=== PATIENT | female | born 1975 | race Two or more races ===

== ENCOUNTER → 2019-10-04 | Outpatient (CLI) | payer MEDICAID ==
--- NOTE | 2019-10-04 16:02 | RAD ---
Examination: TIBIA FIBULA LEFT History: Left lateral leg cyst Comparison/Correlation: None Findings: Frontal and lateral views of the left tibia and fibula were obtained. Joint spaces are normal. No acute fracture or bone destruction. Indeterminate bony densities at the proximal midfoot level which may represent accessory ossicles are present without suspicious features. No lytic bony destructive process identified. Soft tissues are unremarkable. Impression: No acute process. Electronically signed by: Anthony Foley MD (10/04/2019 3:58 PM) [id number]
== END | disposition home or self-care (01) ==
LOC: PMG 11:01
PROVIDERS: ATTEND Family Medicine
DX: L72.0 Epidermal cyst (principal)
CPT/HCPCS: 73590

== ENCOUNTER → 2019-10-17 | Outpatient (CLI) | payer MEDICAID ==
--- NOTE | 2019-10-17 15:30 | RAD ---
Lumbar spine 3 views. HISTORY: Back pain 3 views were taken of the lumbar spine. There is increased stool in the colon. There is no bowel obstruction. Lumbar spine is in normal alignment. Disc spaces are normal in height. There are 4 lumbar type vertebra. IMPRESSION: 1. Increased stool in the colon. 2. Negative lumbar spine. Electronically signed by: Royal Lindsey MD (10/17/2019 3:27 PM) [id number]
== END | disposition home or self-care (01) ==
LOC: LAB 14:57
PROVIDERS: ATTEND Nurse Practitioner Women's Health
DX: Z11.3 Encounter for screening for infections with a predominantly sexual mode of transmission (principal); M54.9 Dorsalgia, unspecified; K56.41 Fecal impaction
CPT/HCPCS: 72100; 86592; 86703; 86803

== ENCOUNTER → 2019-12-08 | Day surgery (SDC) | payer MEDICAID ==
[~2019-12-08] MED LIST: BUPIVACAINE-EPI 0.25%-1:200000 MPF 30 ML VIAL. ONE; LIDOCAINE 1% Multi-Dose 20 ML VIAL. ONE; LIDOCAINE 1%/EPI 1:100,000 20 ML VIAL. IJ ONE; LIDOCAINE 1%/EPI 1:100,000 20 ML VIAL. ONE; MULT-246 PO
[2019-12-08 08:16] VITALS: BP 128/63
--- NOTE | 2019-12-08 08:20 | PDOC ---
BRIEF OPERATIVE NOTE Date: December 08, 2019 Pre-Op Diagnosis LEFT LOWER EXTRIMITY MASS Post-Op Diagnosis Same Procedure Performed Excision of mass Surgeon Jet Anesthesiologist Local Anesthesia Type: Local Blood Loss 2ml Specimens Obtained yes Findings as above Complications none CLARKE MCDONALD MD December 08, 2019 08:20
--- NOTE | 2019-12-08 08:22 | DISCH ---
DISCHARGE INSTRUCTIONS-DC Condition on Discharge Condition on Discharge: Stable Activity after Discharge Activity Instructions for Disc: No restrictions Diet after Discharge Diet after Discharge: Regular Wound/Incision Care Other wound/incision instructi: alban shower in 24 hours Contacting the after DC Call your doctor for: If your condition worsens Follow-Up Follow up with: Dr Mcdonald in 2 weeks if needed CLARKE MCDONALD MD December 08, 2019 08:22
--- NOTE | 2019-12-08 09:13 | PDOC4 ---
Operative Report DATE 12/08/2019 Preop Diagnosis Left lower extremity mass Post-op Diagnosis Same Operation Performed Excision of left lower extremity mass Patient is a 44-year-old female complaining of a left lower extremity mass on the lateral aspect of her griggs approximately 1 cm in diameter has been very painful over the last several weeks. Procedure of excision was explained to the patient detail was benefits were also discussed including bleeding infection alternatives to this procedure also discussed with patient who seemed to und erstand and gave both verbal and written consent to have the procedure performed. Patient was taken to the minors room placed in the supine position, her left lower extremity was prepped and draped in usual sterile fashion using ChloraPrep and area over the mass was injected with 1% lidocaine with epinephrine was this was anesthetized incision was made with 15 blade scalpel and the mass was sharply excised with a 15 blade scalpel and sent for pathology. The wound was closed in a single layer of 4-0 Monocryl subcuticular stitch Mastisol Steri-Strips and island dressing were applied. Patient tolerated procedure well was discharged home in stable condition all sponge instrument needle counts listed as correct. Surgeon Jet ANESTHESIA PROPOSED: LOCAL Blood Loss 2 mL Specimen Left lower extremity mass Complications None CLARKE MCDONALD MD December 08, 2019 09:13
--- NOTE | 2019-12-13 17:06 | PATHOLOGY ---
[facility] Accession Number: [id number] . 01 Material submitted: . leg - LEFT LOWER EXTREMITY MASS. Modifiers: left, lower . 01 Clinical history: . None provided. . 02 Diagnosis: Fibroadipose tissue, left lower extremity excision: - Leiomyoma. (JPM:shireen; 12/11/2019) S 12/11/2019 1004 Local . 02 Comment: Sections of the left lower extremity mass excision reveal a well circumscribed mass composed of a relatively hypocellular proliferation of spindled shaped tumor cells arranged in interlacing fasicles. The tumor cells have eosinophilic cytoplasm, and possess elongated, cigar shaped bland nuclei. There is no significant nuclear atypia or mitotic activity. There is no evidence of necrosis. A panel of immunoperoxidase stains is obtained on block A1 and yields the following results: . Vimentin: Tumor cells positive S100: Tumor cells negative Smooth muscle actin: Tumor cells positive Smooth muscle myosin heavy chain: Tumor cells positive . The morphologic and immunophenotypic findings are supportive of the diagnosis of leiomyoma. There is no evidence of malignancy. (JPM:shireen; 12/11/2019) . . Special stains performed: Immunoperoxidase stains for vimentin, S100, smooth muscle actin, and smooth muscle myosin heavy chain . 02 Electronically signed: . Riki Colindres MD, Pathologist NPI- [id number] . 01 Gross description: . Received in formalin labeled "Shanell Barahona, left lower extremity mass" is a yellow-wilburn nodular soft tissue mass measuring 0.7 x 0.5 x 0.5 cm. The external surface is inked and the specimen is bisected and submitted in cassette A1. (SK; 12/08/2019) SYC/SYC 12/08/2019 1904 Local . 02 Pathologist provided ICD-10: D21.22 . 02 CPT . 570272, F74806, [id number] Specimen Comment: A courtesy copy of this report has been sent to [phone], [phone] Specimen Comment: [id number] Specimen Comment: Report sent to / DR CULP Performed at: [address] [facility] [address], [place] [id number] MD Hero Ewing MD Phone: [phone] Performed at: 02 [facility] [address], [place] [id number] MD Riki Colindres MD Phone: [phone]
== END | disposition home or self-care (01) ==
LOC: SURG 07:11
PROVIDERS: ATTEND Surgery
DX: M79.89 Other specified soft tissue disorders (principal); D21.22 Benign neoplasm of connective and other soft tissue of left lower limb, including hip; Z11.59 Encounter for screening for other viral diseases; Z88.6 Allergy status to analgesic agent; Z79.899 Other long term (current) drug therapy; Z98.890 Other specified postprocedural states
CPT/HCPCS: 87635; 88305; 88341; 88342

== ENCOUNTER 2021-01-31 10:23 | Emergency (ER) | payer MEDICAID ==
[~2021-01-31] VITALS: Ht 160 cm; Wt 61.3 kg
[~2021-01-31 10:23] MED LIST changes: -BUPIVACAINE-EPI 0.25%-1:200000 MPF 30 ML VIAL. ONE; -LIDOCAINE 1% Multi-Dose 20 ML VIAL. ONE; -LIDOCAINE 1%/EPI 1:100,000 20 ML VIAL. IJ ONE; -LIDOCAINE 1%/EPI 1:100,000 20 ML VIAL. ONE
[2021-01-31 10:43] VITALS: BP 128/79
[2021-01-31] MEDS ORDERED: diazePAM 5 MG TABLET. PO ONE (11:00)
--- NOTE | 2021-01-31 11:11 | PHYS DOC ---
Past History Alcohol Use: None General Adult EDM: Chief Complaint: BACK PAIN OR INJURY HPI: HPI: 45 yo F PMH left sided sciatica, presents to the ed with fiance, (patient consents to his/her/their knowledge and involvement in pts' medical care), c/o back pain that started around 6pm last night, c/o midline low back pain that radiated to both sides after bending over to citrus picker her laundry basket. States she took motrin and naprosyn (> 6 hours apart) and a muscle relaxer prescribed by Dr. Kim for left lower extremity sciatica that was caused by a left lower extremity lesion that started after a mass removal. States pain is now localized in her right lower back and radiating down her right leg. No history of disc herniations. No associated blunt back injury. Reports she exercises 4-5 times a week, denies any new/increased heavy lifting. Reports she does squats while holding weights. Denies any history of trauma, history of IV drug use, history of cancer, history of malignancy, history of immunocompromise state, neurologic complaints including saddle anesthesia, weakness or paresthesias, urinary retention, bowel or bladder incontinence, night pain, fever/chills/night sweats, unexplained weight loss, anticoagulants or coagulopathy, prolonged steroid use, older age, presence of contusions or abrasions. Review of Systems: Review of Systems: Constitutional: Denies fever or chills Eyes: Denies change in visual acuity HENT: Denies nasal congestion or sore throat Respiratory: Denies cough or shortness of breath Cardiovascular: Denies chest pain or edema GI: Denies nausea, vomiting, : Denies dysuria or vaginal bleeding Musculoskeletal: Denies joint pain or swelling Integument: Denies rash or diaphoresis Neurologic: Denies headache or diaphoresis Psychiatric: Denies depression or anxiety Allergies: Allergies: Allergies Coded Allergies Type Severity Reaction Last Updated Verified aspirin Allergy Severe tongue swelling, shortness of air 12/06/19 Yes Physical Exam: PE: Constitutional: Well developed, thin/appears physically active/fit, afebrile HENT: Normocephalic, atraumatic, Eyes: EOMI, conjunctiva normal, no discharge. Neck: Normal range of motion, supple, Cardiovascular: S1/2 present, regular rhythm Lungs & Thorax: Speaking in full sentences, bilateral equal chest rise, no tachypnea or increased work of breathing Abdomen: soft, no tenderness, Skin: Warm, dry, no erythema, no rash. [] Back: no midline step offs or reproducible midline ttp, reports L5/S1 joint pain/right buttock pain with right straight leg test negative, pain exacerbated with hip/torso flexion extension or hip twisting rotations, no CVA tenderness. [] Extremities: No tenderness, no cyanosis, no lower extremity edema Neurologic: Alert and oriented X 3, normal motor function, normal sensory function, no focal deficits noted. [] Psychologic: Affect normal, judgement normal, mood normal. [] EKG: EKG: [] Radiology/Procedures: Radiology/Procedures: IMAGING REPORT Signed PATIENT: LUBA RODRIGUES ACCOUNT: [id number] : 1975 LOCATION: ER AGE: 45 SEX: F EXAM STATUS: REG ER ORD. PHYSICIAN: HARRY CARRILLO DO REASON: L5 back pain after squats PROCEDURE: CT LUMBAR SPINE WO CONTRAST CT LUMBAR SPINE WO History:Reason: L5 back pain after squats / Spl. Instructions: / History: Technique: Noncontrast CT was performed of the lumbar spine. Multiplanar reconstructions were performed. Exposure: One or more of the following individualized dose reduction techniques were utilized for this examination: 1. Automated exposure control 2. Adjustment of the mA and/or kV according to patient size 3. Use of iterative reconstruction technique. Comparison: None Findings: Normal vertebral body height and alignment. No fracture. T12-L1: No canal or neuroforaminal narrowing. L1-L2: Minimal disc bulge. No canal or neuroforaminal narrowing. L2-L3: Minimal disc bulge. No canal or neuroforaminal narrowing. L3-L4: Small disc bulge. No canal or neuroforaminal narrowing. L4-L5: Small disc bulge. Mild facet arthropathy. No canal or neuroforaminal narrowing. L5-S1: Small broad-based disc bulge with left foraminal disc protrusion. Slight abutment of the descending S1 nerve roots, right greater than left. Correlate for radiculopathy. No canal narrowing. Minimal left neuroforaminal narrowing with protrusion marginating the exiting left L5 nerve root. Impression: 1. No acute osseous abnormality. 2. Mild multilevel lumbar spondylosis most prominent L5-S1, as described. Electronically signed by: Hernandez Shane DO (01/31/2021 12:12 PM) [id number] DICTATED AND SIGNED BY: HERNANDEZ SHANE DO DATE: 01/31/21 1206 CC: VALERIA KIM MD; HARRY CARRILLO ~MTH0 0 Heart Score: C/O Chest Pain: No Risk Factors: Risk Factors: DM, Current or recent (<one month) smoker, HTN, HLP, family history of CAD, obesity. Risk Scores: Score 0 - 3: 2.5% MACE over next 6 weeks - Discharge Home Score 4 - 6: 20.3% MACE over next 6 weeks - Admit for Clinical Observation Score 7 - 10: 72.7% MACE over next 6 weeks - Early Invasive Strategies Course & Med Decision Making: Course & Med Decision Making Pertinent Labs and Imaging studies reviewed. (See chart for details) Concern for atraumatic back pain in a 45-year-old female who appears physically active, had performed squats with hand-held weights prior to onset of pain. Denies any blunt injury. Has no neurologic deficits. Pain is currently not midline and is radiating down her right leg. CT imaging consistent with mild disc herniations and radiculopathy. Patient afebrile, well-appearing. On reevaluation, significant pain relief with vomiting. Will prescribe muscle relaxers-patient educated to not mix use whatsoever in addition to alcohol given risk of apnea. Will discharge home with strict ED return precautions were given for saddle anesthesia, urine or bowel retention or incontinence, neurologic deficits including sensorimotor deficits. Encouraged urgent outpatient follow-up with PMD and Ortho/neurosurgery for definitive management. Life-threatening processes were considered but are low suspicion at this time, given history, physical exam and ED workup. Pt was educated on all prescription medications and adverse effects. All patient's questions were answered and pt was stable at time of discharge. Life/limb-threatening differential includes but is not limited to, aortic dissection/aneurysm, cauda equina syndrome, transverse myelitis, spinal cord/epidural compression syndromes, discitis, spinal stenosis, epidural abscess or hematoma, osteomyelitis, disc herniation, surgical abdomen, stable or unstable fracture, renal/ureteral colic, sepsis, meningitis, musculoskeletal injury, traumatic injury, intraabdominal/retroperitoneal or pelvic bleeding. I spoken with the patient and her caregivers. I explained the patient's condition, diagnoses and treatment plan based on the information available to me at this time. I have answered the patient and her caregiver's questions and addressed any concerns. The patient and her caregivers have a good understanding of patient's diagnosis, condition and treatment plan as can be expected at this point. Vital signs have been stable. Patient's condition is stable and appropriate for discharge from the emergency department. Patient will pursue further outpatient evaluation with primary care physician or other designated or consulting physician as outlined in the discharge instructions. The patient and/or caregivers are agreeable to this plan of care and follow-up instructions have been explained in detail. The patient and/or caregivers have received these instructions in written form and have expressed an understanding of the discharge instructions. The patient and/or caregivers are aware that any significant change of condition or worsening of symptoms should prompt immediate return to this or the closest emergency department or call to 911Nancy Coker Disclaimer: John Paul Disclaimer: This electronic medical record was generated, in whole or in part, using a voice recognition dictation system. Departure Departure: Impression: Primary Impression: Lumbar disc herniation with radiculopathy Additional Impression: Back pain Disposition: 01 HOME / SELF CARE / HOMELESS Condition: STABLE Referrals: VALERIA KIM MD (PCP) in 2-3 days for re-evaluation, return to ed if you should develop any loss of sensation, weakness, paralysis or unable to control urine or bowels Patient Instructions: Back Pain, Adult, Hernia, Surgical Repair, Care After, Lumbosacral Radiculopathy Additional Instructions: For definitive management: FOLLOW UP WITH ORTHOPEDICS: [facility] [address] [facility], [facility] [address] [place] [address] OR FOLLOW UP WITH NEUROSURGERY: FOR DEFINITIVE MANAGEMENT [facility] [address] [facility], [address] [place] [address] EMERGENCY DEPARTMENT GENERAL DISCHARGE INSTRUCTIONS Thank you for coming to [facility] (ED) today and trusting us with you care. We trust that you had a positivie experience in our Emergency Department. If you wish to speak to the department management, you may call the director at [phone]. YOUR FOLLOW UP INSTRUCTIONS ARE FOLLOWS: 1. Do you have a private Doctor? If you do not have a private doctor, please ask for a resource list of physicians or clinics that may be able to assist you with follow up care. 2. The Emergency Physician has interpreted your x-rays. The X-Ray specialist will also review them. If there is a change in the findings, you will be notified in 48 hours when at all possible. 3. A lab test or culture has been done, your results will be reviewed and you will be notified if you need a change in treatment. ADDITIONAL INSTRUCTIONS AND INFORMATION: 1. Your care today has been supervised by a physician who is specially trained in emergency care. Many problems require more than one evaluation for a complete diagnosis and treatment. We recommend that you schedule your follow up appointment as recommended to ensure complete treatment of you illness or injury. If you are unable to obtain follow up care and continue to have a problem, or if your condition worsens, we recommend that you return to the ED. 2. We are not able to safely determine your condition over the phone nor are we able to give sound medical advice over the phone. For these safety reasons, if you call for medical advice we will ask you to come to the ED for further evaluation. 3. If you have any questions regarding these discharge instructions please call the ED at [phone]. SAFETY INFORMATION: In the interest of safety, wellness, and injury prevention; we encourage you to wear your sealbelt, if you smoke; quite smoking, and we encourage family to use a protective helmet for bicycling and other sporting events that present an increased risk for head injury. IF YOUR SYMPTOMS WORSEN OR NEW SYMPTOMS DEVELOP, OR YOU HAVE CONCERNS ABOUT YOUR CONDITION; OR IF YOUR CONDITION WORSENS WHILE YOU ARE WAITING FOR YOUR FOLLOW UP APPOINTMENT; EITHER CONTACT YOUR PRIMARY CARE DOCTOR, THE PHYSICIAN WHOSE NAME AND NUMBER YOU WERE GIVEN, OR RETURN TO THE ED IMMEDIATELY. Scripts Lidocaine/Menthol (LIDOPATCH) 1 Each Adh..patch 1 SALMA TP DAILY for pain for 5 Days, #5 EACH 0 Refills 1 patch for 12 hours and remove for 12 hours, may repeat daily, total of 5 days Prov: HARRY CARRILLO DO 01/31/21 Methocarbamol (METHOCARBAMOL) 750 Mg Tablet 750 MG PO TID PRN for PAIN for 7 Days, #21 TAB Prov: HARRY CARRILLO DO 01/31/21 HARRY CARRILLO DO Jan 31, 2021 11:10
[2021-01-31] MEDS ORDERED: diazePAM 5 MG TABLET. ONE (11:18)
[2021-01-31 11:43] LABS: BILIRUBIN,URINE NEG (NEG); CLARITY,URINE HAZY; COLOR,URINE YELLOW; GLUCOSE,URINE NEG (NEG)
[2021-01-31 11:44] LABS: BACTERIA,URINE 0 /HPF (0-FEW); NITRITE,URINE NEG (NEG); RBC,URINE RARE /HPF (0-2); SQUAMOUS EPITHELIAL CELL,UR MANY /LPF; UROBILINOGEN,URINE 0.2 mg/dL (0.2 mg/dL)
--- NOTE | 2021-01-31 12:14 | RAD ---
CT LUMBAR SPINE WO History:Reason: L5 back pain after squats / Spl. Instructions: / History: Technique: Noncontrast CT was performed of the lumbar spine. Multiplanar reconstructions were perform ed. Exposure: One or more of the following individualized dose reduction techniques were utilized for thi s examination: 1. Automated exposure control 2. Adjustment of the mA and/or kV according to patient size 3. Use of iterative reconstruction technique. Comparison: None Findings: Normal vertebral body height and alignment. No fracture. T12-L1: No canal or neuroforaminal narrowing. L1-L2: Minimal disc bulge. No canal or neuroforaminal narrowing. L2-L3: Minimal disc bulge. No canal or neuroforaminal narrowing. L3-L4: Small disc bulge. No canal or neuroforaminal narrowing. L4-L5: Small disc bulge. Mild facet arthropathy. No canal or neuroforaminal narrowing. L5-S1: Small broad-based disc bulge with left foraminal disc protrusion. Slight abutment of the desc ending S1 nerve roots, right greater than left. Correlate for radiculopathy. No canal narrowing. Mini mal left neuroforaminal narrowing with protrusion marginating the exiting left L5 nerve root. Impression: 1. No acute osseous abnormality. 2. Mild multilevel lumbar spondylosis most prominent L5-S1, as described. Electronically signed by: Hernandez Shane DO (01/31/2021 12:12 PM) [id number]
[2021-01-31] MEDS ORDERED: LIDO1ADH TP (12:27)
[2021-01-31] MEDS ORDERED: METH-560 PO (12:27)
== END 2021-01-31 12:50 | disposition home or self-care (01) ==
LOC: ER 10:23
DX: M51.16 Intervertebral disc disorders with radiculopathy, lumbar region (principal); Z88.6 Allergy status to analgesic agent
CPT/HCPCS: 72131; 81001; 81025; 99284

== ENCOUNTER → 2021-04-03 | Outpatient (CLI) | payer MEDICAID ==
[~2021-04-03] MED LIST changes: +LIDO1ADH TP; +METH-560 PO
--- NOTE | 2021-04-03 15:54 | RAD ---
AP and Lateral Views of the Chest 04/03/2021 3:42 PM Indication: Reason: TB IN 2008 Comparison: None Findings: There is no focal consolidation or infiltrate identified. The cardiomediastinal silhouette is within normal limits. There is no evidence of pneumothorax or pleural effusion. No acute osseous a bnormalities are identified. Impression: No evidence of acute cardiopulmonary process. Electronically signed by: Kristian Grande MD (04/03/2021 3:51 PM) [id number]
== END ==
LOC: RAD 15:35
PROVIDERS: ATTEND Family Medicine
DX: A15.0 Tuberculosis of lung (principal)
CPT/HCPCS: 71046

== ENCOUNTER 2021-07-30 09:53 | Emergency (ER) | payer MEDICAID ==
[~2021-07-30] VITALS: Ht 160 cm; Wt 61.3 kg
--- NOTE | 2021-07-30 11:54 | PHYS DOC ---
Past History Past Surgical History: Alcohol Use: None General Adult EDM: Chief Complaint: COUGH HPI: HPI: 46 yo F who denies any PMH presents the ED with complaints of fever, cough, headache, body aches and sore throat. Symptoms started yesterday. Patient received [employer] vaccine. Review of Systems: Review of Systems: Constitutional: Denies lethargy or chills Eyes: Denies change in visual acuity HENT: Denies nasal congestion or rhinorrhea Respiratory: Denies hemoptysis or shortness of breath Cardiovascular: Denies chest pain or edema GI: Denies abdominal pain, nausea, vomiting, bloody stools or diarrhea : Denies dysuria or hematuria Musculoskeletal: Denies back pain or joint pain Integument: Denies rash or dysuria or diaphoresis Neurologic: Denies focal weakness or sensory changes Endocrine: Denies polyuria or polydipsia Lymphatic: Denies swollen glands Psychiatric: Denies depression or anxiety Allergies: Allergies: Allergies Coded Allergies Type Severity Reaction Last Updated Verified aspirin Allergy Severe tongue swelling, shortness of air 12/06/19 Yes Physical Exam: PE: Constitutional: Well developed, well nourished, no acute distress, non-toxic appearance. HENT: Normocephalic, atraumatic, Eyes: EOMI, conjunctiva normal, no discharge. Neck: Normal range of motion, supple, Cardiovascular: S1/2 present, regular rhythm Lungs & Thorax: Speaking in full sentences, bilateral equal chest rise, no tachypnea or increased work of breathing Abdomen: soft, no tenderness, Skin: Warm, dry, no erythema, no rash. [] Back: No tenderness, no CVA tenderness. [] Extremities: No tenderness, no cyanosis, no lower extremity edema Neurologic: Alert and oriented X 3, normal motor function, normal sensory function, no focal deficits noted. [] Psychologic: Affect normal, judgement normal, mood normal. [] Current Patient Data: Vital Signs: Vital Signs Date Time Temp Pulse Resp B/P (MAP) Pulse Ox O2 Delivery O2 Flow Rate FiO2 07/30/21 11:06 98.7 120 18 128/79 (95) 100 Room Air EKG: EKG: [] Radiology/Procedures: Radiology/Procedures: [] Heart Score: C/O Chest Pain: No Risk Factors: Risk Factors: DM, Current or recent (<one month) smoker, HTN, HLP, family history of CAD, obesity. Risk Scores: Score 0 - 3: 2.5% MACE over next 6 weeks - Discharge Home Score 4 - 6: 20.3% MACE over next 6 weeks - Admit for Clinical Observation Score 7 - 10: 72.7% MACE over next 6 weeks - Early Invasive Strategies Course & Med Decision Making: Course & Med Decision Making Pertinent Labs and Imaging studies reviewed. (See chart for details) COVID-19 CRITERIA: The patient was evaluated during the global COVID-19 pandemic, and that diagnosis was suspected/considered upon their initial presentation. Their evaluation, treatment and testing was consistent with current guidelines for patients who present with complaints or symptoms that may be related to COVID-19. Concern for covid-19 infection in a well, appearing, HD stable female. Patient requiring respiratory support. Symptoms have been present for 2 days. Will discharge home with strict ED return precautions were given for chest pain, increased work of breathing, emesis, shortness of breath or neurologic deficits. Encouraged urgent outpatient follow-up with PMD for reevaluation. Life- threatening processes were considered but are low suspicion at this time, given history, physical exam and ED workup. Pt was educated on all prescription medications and adverse effects. All patient's questions were answered and pt was stable at time of discharge. Life/limb-threatening differential includes but is not limited to, foreign body, infection/sepsis, congestive heart failure or pulmonary edema, lung cancer intrathoracic mass, bronchoconstriction, asthma/COPD/lung disease exacerbation, pneumothorax or hemothorax, pulmonary emboli, autoimmune/neurologic disease or toxidrome. I have spoken with the patient and/or caregivers. I explained the patient's condition, diagnoses and treatment plan based on the information available to me at this time. I have answered the patient and/or caregiver's questions and addressed any concerns. The patient and/or caregivers have a good understanding of patient's diagnosis, condition and treatment plan as can be expected at this point. Vital signs have been stable. Patient's condition is stable and appropriate for discharge from the emergency department. Patient will pursue further outpatient evaluation with primary care physician or other designated or consulting physician as outlined in the discharge instructions. The patient and/or caregivers are agreeable to this plan of care and follow-up instructions have been explained in detail. The patient and/or caregivers have received these instructions in written form and have expressed an understanding of the discharge instructions. The patient and/or caregivers are aware that any significant change of condition or worsening of symptoms should prompt immediate return to this or the closest emergency department or call to 911. John Paul Disclaimer: John Paul Disclaimer: This electronic medical record was generated, in whole or in part, using a voice recognition dictation system. Departure Departure: Impression: Primary Impression: COVID-19 Disposition: HOME / SELF CARE / HOMELESS Condition: STABLE Referrals: VALERIA CULP MD (PCP) Follow up with your pcp in 1-2 days or [facility] [phone] OR [facility] Turner [phone] Patient Instructions: Upper Respiratory Infection, Adult Additional Instructions: Return to ED immediately if your oxygen level drops below 90% (purchase a pulse oximetry at a medical supply store), difficulties breathing including rapid breathing or increased work of breathing (skin sucking under ribs), chest pain or stroke-like symptoms (facial droop, speech changes, arm/leg weakness). You have been tested for or diagnosed with COVID-19. It is an infection caused by a new type of coronavirus. COVID-19 will cause cold-like or mild flu symptoms in most. It can cause more severe symptoms like problems breathing in some. There is no treatment for COVID-19. The body will clear the infection over time. Self-care will help to ease discomfort. Steps to Take: Self-Care Rest as needed. Healthy habits may help you feel better. Steps include: Choose healthy foods including fruits and vegetables. Drink water throughout the day. Get plenty of sleep each night. If you smoke, try to quit. It may ease breathing. Avoid alcohol. Keep Others Healthy The virus can spread to others. Droplets are released every time you sneeze or cough. The droplets can get into the mouth, nose, or eyes of people near you and lead to infection. To lower the chances of spreading COVID-19 to others: Stay at home until your doctor has said it is safe to leave. If you tested positive this will mean staying isolated until both of the following are true: At least 7 days have passed since the start of illness. You are free of fever for at least 72 hours without the use of medicine. During this time: - Avoid public areas, events, or transportation. Do not return to work or school until your doctor has said it is safe to do so. - Call ahead if you need to go to a medical center. Let them know you may have COVID-19. It will help them guide you where to go. They may also ask you to wear a facemask when you come to the office. - If you call for emergency medical services, let them know you may have COVID- 19. While at home: - Try to avoid close contact with others. Stay about 6 feet away. - If possible, spend most of your time in a separate room from others. - Use a face mask if you will be in close contact with others such as sharing a room or vehicle. - Have someone wipe down common surfaces in the home. Use household cooler tender every day on areas like doorknobs, counters, or sinks. - Cough or sneeze into a tissue. Throw the tissue away right after use. If a tissue is not available, cough or sneeze into your elbow. - Wash your hands often. Wash them after sneezing or coughing. Use soap and water and wash for at least 20 seconds. Alcohol based hand bin cleaner can be used if soap and water is not available. - Do not prepare food for others. Avoid sharing personal items like forks, spoons, or toothbrushes. - Avoid close contact with pets while you are sick. There is no evidence of the virus passing to pets. This is a safety step until more is known about this virus. Isolation can be frustrating. Social interaction can help. Keep in touch with friends and family through phone and tech options. You can still interact with others in your home, just keep a safe distance of about 6 feet. Follow-up: Your doctors office will check in with you to see if there are any changes in your health. You may be asked to keep track of symptoms to share with them. They will also let you know when you are clear to be in public again. Problems to Look Out For: Contact your doctor if your recovery is not going as you expect. Get emergency care if you have problems such as: - Trouble breathing - Nonstop chest pain or pressure - Changes in awareness, confusion, or problems waking - Lips or face have bluish color - Worsening of symptoms If you think you have an emergency, call for emergency medical services right away. As taken from [facility],HARRY Servin DO Jul 30, 2021 11:54
[2021-07-30 11:59] LABS: INFLUENZA A PATIENT NEGATIVE (NEGATIVE); INFLUENZA B PATIENT NEGATIVE (NEGATIVE)
[2021-07-30] MEDS ORDERED: IBUPROFEN 600 MG TABLET. PO ONE (12:00)
[2021-07-30] MEDS ORDERED: DEXAMETHASONE 4 MG TABLET PO ONE (12:00)
[2021-07-30 12:08] VITALS: BP 128/89
== END 2021-07-30 13:15 | disposition home or self-care (01) ==
LOC: ER 09:53
DX: U07.1 COVID-19 (principal); Z88.6 Allergy status to analgesic agent
CPT/HCPCS: 87426; 87804; 99283; J8540